=== PATIENT | male | born 1980 | race Caucasian/White ===

== ENCOUNTER 2023-05-12 06:20 | Day surgery (SDC) | payer MEDICAID ==
[~2023-05-12] VITALS: Ht 177.8 cm; Wt 99.8 kg
[2023-05-12] MEDS ORDERED: fentaNYL CITRATE/PF 100 MCG/2 ML AMP ONE (07:25)
[2023-05-12] MEDS ORDERED: MIDAZOLAM HCL 5 MG/5 ML VIAL ONE (07:25)
[2023-05-12] MEDS ORDERED: SIMETHICONE 40 MG/0.6 ML ML ONE (07:42)
[2023-05-12 11:40] VITALS: O2SAT 95
[2023-05-12 12:23] VITALS: BP_SYST 129; PULSE 82; RESP 18
== END 2023-05-12 09:40 | disposition home or self-care (01) ==
LOC: SDS 06:20 → SMU 06:21 → SDS 09:40
PROVIDERS: ATTEND Internal Medicine
DX: K62.5 Hemorrhage of anus and rectum (principal); K57.30 Diverticulosis of large intestine without perforation or abscess without bleeding; K58.9 Irritable bowel syndrome, unspecified; Z86.010 Personal history of colon polyps; Z87.891 Personal history of nicotine dependence; Z80.0 Family history of malignant neoplasm of digestive organs; Z79.899 Other long term (current) drug therapy
CPT/HCPCS: 45330; 99152; G0378; J2250; J3010